=== PATIENT | male | born 1965 | race Hispanic/Latino ===

== ENCOUNTER 2018-09-04 09:03 | Emergency (ER) | payer OTHER ==
[2018-09-04 09:13] VITALS: RESP 18; O2SAT 97; BMI 25.4
--- NOTE | 2018-09-04 09:41 | ED PDOC ---
Arrival/HPI - General Chief Complaint: Back Pain Time Seen by Provider: 09/04/18 09:36 Historian: Patient - History of Present Illness Narrative History of Present Illness (Text): 09/04/18 09:41 53 y/o male with no significant PMH presents to the ED c/o lower back pain s/p injury this AM. 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 Took 800mg ibuprofen at 715am and iced the area which provided temporary relief. Denies fever, chills, abdominal pain, nausea, vomiting, urinary symptoms, numbness, weakness, paresthesias, saddle anesthesia, bowel/bladder incontinence, or any other associated complaints. Past Medical History - Provider Review Nursing Documentation Reviewed: Yes - Infectious Disease Hx of Infectious Diseases: None - Musculoskeletal/Rheumatological Hx Herniated Disk: Yes - Psychiatric Hx Substance Use: No - Anesthesia Hx Anesthesia: No Family/Social History - Physician Review Nursing Documentation Reviewed: Yes Family/Social History: No Known Family HX Smoking Status: Never Smoked Hx Alcohol Use: No Hx Substance Use: No Allergies/Home Meds Allergies/Adverse Reactions: Allergies No Known Allergies Allergy (Verified 09/04/18 09:12) Review of Systems - Review of Systems Constitutional: Normal. absent: Fevers Eyes: Normal. absent: Vision Changes ENT: Normal. absent: Sore Throat, Sinus Congestion Respiratory: Normal. absent: SOB, Cough Cardiovascular: Normal. absent: Chest Pain, Palpitations, Syncope Gastrointestinal: Normal. absent: Abdominal Pain, Stool Changes, Nausea, Vomiting, Appetite Changes Genitourinary Male: Normal. absent: Dysuria, Frequency, Other (no incontinence) Musculoskeletal: Back Pain. absent: Neck Pain Skin: Normal. absent: Rash Neurological: Normal. absent: Headache, Dizziness, Other (no saddle anesthesia, numbness, paresthesias, weakness) Physical Exam Vital Signs Reviewed: Yes Vital Signs Temp Pulse Resp BP Pulse Ox 09/04/18 09:13 97.1 F L 83 18 126/71 97 Temperature: Afebrile Blood Pressure: Normal Pulse: Regular Respiratory Rate: Normal Appearance: Positive for: Well-Appearing, Non-Toxic, Uncomfortable Pain Distress: Mild Mental Status: Positive for: Alert and Oriented X 3 - Systems Exam Head: Present: Atraumatic, Normocephalic Pupils: Present: PERRL Extroacular Muscles: Present: EOMI Conjunctiva: Present: Normal Mouth: Present: Moist Mucous Membranes Neck: Present: Normal Range of Motion. No: Meningeal Signs, MIDLINE TENDERNESS, Paraspinal Tenderness Respiratory/Chest: Present: Clear to Auscultation, Good Air Exchange. No: Respiratory Distress, Accessory Muscle Use Cardiovascular: Present: Regular Rate and Rhythm, Normal S1, S2, Peripheal Pulses Present Abdomen: Present: Normal Bowel Sounds. No: Tenderness, Distention, Peritoneal Signs, Rebound, Guarding Back: Present: Normal Inspection, Paraspinal Tenderness (right lumbar with tenderness and muscle spasm), Pain with Leg Raise ((+) right). No: CVA Tenderness, Midline Tenderness Upper Extremity: Present: Normal Inspection, Normal ROM, NORMAL PULSES, Neurovascularly Intact, Capillary Refill < 2s. No: Cyanosis, Edema, Temperature Abnormalties Lower Extremity: Present: Normal Inspection, NORMAL PULSES, Normal ROM, Neurovascularly Intact, Capillary Refill < 2 s. No: Edema, CALF TENDERNESS, Temperature Abnormalties Neurological: Present: GCS=15, CN II-XII Intact, Speech Normal, Motor Func Grossly Intact, Normal Sensory Function, Gait Normal Skin: Present: Warm, Dry, Normal Color. No: Rashes Psychiatric: Present: Alert, Oriented x 3, Normal Insight, Normal Concentration, Normal Affect, Normal Mood Medical Decision Making ED Course and Treatment: 09/04/18 09:40 Initial Plan: * tylenol * valium * lidoderm patch * lumbar spine XR * UA 09/04/18 13:01 Xray negative for acute pathology UA unremarkable. Patient reports some improvement in pain with medications. Ambulated in the ED without difficulty. Advised orthopedic and PMD followup. Diagnostic testing results and plan of care discussed with patient. Strict instructions given regarding prescription use, importance of followup, and signs/symptoms to return to ER including saddle anesthesia, leg pain, numbness, weakness, paresthesias, incontinence, or any other new/worsening symptoms. Pt verbalized understanding of discussion. Patient is A&Ox3, ambulating with steady gait, with vital signs stable for discharge. - Lab Interpretations Lab Results: Lab Results 09/04/18 12:05: Urine Color Yellow, Urine Appearance Clear, Urine pH 6.0, Ur Specific [place] 1.015, Urine Protein Negative, Urine Glucose (UA) Negative, Urine Ketones 15 H, Urine Blood Negative, Urine Nitrate Negative, Urine Bilirubin Negative, Urine Urobilinogen 0.2, Ur Leukocyte Esterase Negative I have reviewed the lab results: Yes - RAD Interpretation Radiology Orders: Lumbar Spine XR: FINDINGS: BONES: Alignment appears satisfactory. No listhesis. Mild degenerative changes. No acute displaced fracture identified. DISC SPACES: Unremarkable. OTHER FINDINGS: None. IMPRESSION: No acute displaced fracture or subluxation identified. Please note limited visualization of the ribs, particularly on the left due to overlying bowel gas pattern. Irregularity of the left 12th rib suspected artifactual due to confluence of shadows, however, if rib fractures of clinical concern, suggest dedicated rib series. Interviewing Clerk: Radiologist Disposition/Present on Arrival - Present on Arrival Any Indicators Present on Arrival: No History of DVT/PE: No History of Uncontrolled Diabetes: No Urinary Catheter: No History of Decub. Ulcer: No History Surgical Site Infection Following: None - Disposition Have Diagnosis and Disposition been Completed?: Yes Diagnosis: Muscle spasm Disposition: HOME/ ROUTINE Disposition Time: 13:15 Condition: IMPROVED Discharge Instructions (ExitCare): Low Back Pain (DC), Muscle Spasms (DC) Additional Instructions: Percocet every 6 hours as needed for severe pain Ibuprofen every 8 hours with food as needed for pain Flexeril daily at night x 1 week Lidoderm patches daily, 12 hours on 12 hours off Followup with orthopedic doctor within 2 days Followup with chiropracter within 2 days Return to ER with any new/worsening symptoms Prescriptions: Cyclobenzaprine [Cyclobenzaprine HCl] 10 mg PO HS #7 tab Lidocaine 5% [Lidoderm] 1 ea TD DAILY PRN #30 patch PRN Reason: Pain, Mild (1-3) oxyCODONE/Acetaminophen [Percocet 5/325 mg Tab] 1 tab PO Q6H PRN #5 tab PRN Reason: Pain, Severe (8-10) Referrals: Junior Yañez MD [Staff Provider] - Follow up with primary Forms: [employer] (K[place]akh), WORK NOTE
[2018-09-04] MEDS ORDERED: Lidocaine 5% Patch TD STA (09:58)
[2018-09-04 12:12] VITALS: TEMP 97.6
[2018-09-04 12:18] LABS: URINE BILIRUBIN NEGATIVE (NEGATIVE); URINE BLOOD NEGATIVE (NEGATIVE); URINE GLUCOSE (UA) NEGATIVE (NEGATIVE); URINE LEUKOCYTE ESTERASE NEGATIVE Leu/uL (NEGATIVE); URINE PROTEIN NEGATIVE mg/dL (<30 mg/dL); URINE UROBILINOGEN 0.2 E.U./dL (<1 E.U./dL)
[2018-09-04 12:22] LABS: URINE APPEARANCE CLEAR (CLEAR); URINE COLOR YELLOW (YELLOW)
--- NOTE | 2018-09-04 13:06 | RAD ---
Date of service: 09/04/2018 PROCEDURE: Radiographs of the Lumbar Spine. Two views. HISTORY: back pain, injury this am COMPARISON: None available FINDINGS: BONES: Alignment appears satisfactory. No listhesis. Mild degenerative changes. No acute displaced fracture identified. DISC SPACES: Unremarkable. OTHER FINDINGS: None. IMPRESSION: No acute displaced fracture or subluxation identified. Please note limited visualization of the ribs, particularly on the left due to overlying bowel gas pattern. Irregularity of the left 12th rib suspected artifactual due to confluence of shadows, however, if rib fractures of clinical concern, suggest dedicated rib series.
[2018-09-04] MEDS ORDERED: Oxycodone/Acetaminophen 5/325 mg Tab PO STA (13:14)
[2018-09-04 14:49] VITALS: BP 116/72; PULSE 70
== END 2018-09-04 14:45 | disposition home or self-care (01) ==
LOC: MERGE 09:03 → ED 09:03
DX: M62.838 Other muscle spasm (principal)
CPT/HCPCS: 72100; 81003; 96372; 99283; J1100